=== PATIENT | male | born 1960 | race Caucasian/White ===

== ENCOUNTER → 2023-02-25 09:49 | Outpatient (REF) | payer OTHER, SELFPAY ==
--- NOTE | 2023-02-25 09:54 | CA_ITS ---
Transthoracic Echocardiogram Patient (Last, First, Middle): Parag Mcgee, Gender: Male Date of : 1960 Age: 62 Procedure Date: 02/25/2023 Procedure Type: Transthoracic Echocardiogram Location: OP Height: 167.64 cm Weight: 90.72 kg BSA: 2.00 m2 Heart Rate: bpm BP: 115 / 60 mmHg Wireline Operator: JULIAN Referring MD: Ashtyn Holguin MD Symptoms: ABN EKG W OLD CA ISCHEMIA Study Quality: Adequate Conclusions: - The left ventricular systolic function is normal. The calculated ejection fraction is 68% by biplane method. - No obvious valvular pathology seen on this study. Findings Left Ventricle Normal left ventricular cavity size. There is mildly increased left ventricular wall thickness. The left ventricular systolic function is normal. The calculated ejection fraction is 68% by biplane method. There is no evidence of regional wall motion abnormalities. LV peak GLS -22.2%. Right Ventricle Normal right ventricular cavity size and systolic function. Atria Both atria are normal in size. There is lipomatous hypertrophy of the interatrial septum. Aortic Valve There is a normal trileaflet aortic valve. There is no aortic valve stenosis. There is no aortic valve regurgitation. Mitral Valve The mitral valve appears normal. There is no mitral valve regurgitation. There is no mitral valve stenosis. Pulmonic Valve The pulmonic valve is likely normal. Tricuspid Valve Normal tricuspid valve structure. There is mild tricuspid valve regurgitation. There is no evidence of pulmonary hypertension. Great Vessels The asc aorta is normal in size. Venous The inferior vena cava is normal in size and collapses greater than 50% with inspiration. Pericardium/Pleural There is no evidence of pericardial effusion. Prior Study Comparison No prior study available for comparison. Recommendations, Care & Conclusions No obvious valvular pathology seen on this study. Measurements 2D Linear Measurements IVSd: 1.08 0.6-0.9/0.6-1.0 cm LVIDd: 4.73 3.9-5.3/4.2-5.9 cm LVIDd Index: 2.37 2.4-3.2/2.2-3.1 cm/m2 LVIDs: 3.02 2.0-3.6 cm LVPWd: 1.07 0.7-1.1 cm LA Diam: 3.30 2.7-3.8/3.0-4.0 cm LAIDs Index: 1.65 1.5-2.3 cm/m2 LV Mass: 228.63 67-162/88-224 g LV Mass Index: 114.32 43-95/49-115 g/m2 LVOT Diam: 2.10 3.0+(-)1.3 cm 2D Systolic Function EF 4C: 69.10 >55% EF 2C: 67.70 >55% EF BiP: 67.90 >55% Mitral Valve MV Pk E: 0.88 MV PK A: 0.93 MV Decel Time: 229.00 E/A: 1.00 E'Lateral: 7.77 E'Medial: 6.53 E/E' Med: 13.50 E/E' Lat: 11.40 PHT: 67.00 MVA PHT: 3.28 Decel [place]: 3.86 Aortic Valve AoV Pk Luis Enrique: 1.78 AoV Mn Luis Enrique: 1.22 AoV VTI: 0.34 AoV Pk Grad: 13.00 Aov Mn Grad: 7.00 EBONY Cont.VTI: 2.90 LVOT LVOT Pk Luis Enrique: 1.45 LVOT Mn Luis Enrique: 0.98 LVOT VTI: 0.28 LVOT Pk Grad: 8.00 LVOT Mn Grad: 5.00 LVOT Diam: 2.10 LVOT Area: 3.46 Diastolic Function MV Pk E: 0.88 MV Pk A: 0.93 E/A: 1.00 E'Medial: 6.53 E/E' Med: 13.50 E' Laterial: 7.77 E/E' Lat: 11.40 Right Ventricle TAPSE (mm): 22.00 TVS' Luis Enrique: 15.10 Tricuspid Valve TR Pk Luis Enrique: 2.40 TR Pk Grad: 23.00 RA Press: 3.00 RVSP: 26.00 Great Vessels Aorta Sinus of Valsalva: 4.15 2.0-3.[address] [place]: 3.09 1.7-3.4 cm Ao Asc: 3.60 2.1-3.4 cm Updated in Other Vendor System with Status of Final Cliff Mays MD electronically signed on 02/25/2023 3:04:38 PM with status of Final
== END ==
LOC: HO.CARD 09:49
PROVIDERS: PCP Internal Medicine; Visit Provider Internal Medicine
DX: R94.31 Abnormal electrocardiogram [ECG] [EKG] (principal); I10 Essential (primary) hypertension
CPT/HCPCS: 93306; 93356

== ENCOUNTER → 2023-02-25 09:54 | Outpatient (BNV) | payer OTHER, SELFPAY | PROVIDERS: PCP Internal Medicine; Visit Provider Internal Medicine | DX: I36.1 Nonrheumatic tricuspid (valve) insufficiency (principal) | CPT/HCPCS: 93306 ==

== ENCOUNTER 2023-03-25 11:48 | Outpatient (REF) | payer OTHER, SELFPAY ==
[2023-03-25 14:04] LABS: Anion Gap 14 (12-20); Blood Urea Nitrogen 20 mg/dL (9-16); Calcium 9.8 mg/dL (8.4-10.2); Carbon Dioxide 24 mmol/L (22-29); Chloride 104 mmol/L (96-108); Estimated Glomerular Filt Rate > 60; Glucose Random 119 mg/dL (60-115); Sodium 138 mmol/L (135-145)
== END 2023-03-25 11:49 | disposition home or self-care (01) ==
LOC: HO.HHCL 11:48
PROVIDERS: Visit Provider Internal Medicine
DX: I10 Essential (primary) hypertension (principal)
CPT/HCPCS: 36415; 80048

== ENCOUNTER 2025-05-03 09:20 | Outpatient (REF) | payer MEDICARE, SELFPAY ==
--- OUTSIDE RECORDS SUMMARY | 2025-05-03 10:21 | XMS_ITS | Clinical Summary ---
Author Organization [employer] Address [address] [facility] [address] [place] [address] Care Team Providers Care Inkjet Operator Name Role Phone Ashtyn Holguin MD Primary Care Provider + Gela Adame Unavailable Unavailable Allergies No known active allergies Medications lisinopril-hydroC HLOROthiazide 20-25 MG tabletIndications :Benign hypertension Take 1 tablet by mouth Once per day. 90 tablet 3 12/28/2024 12/29/19 26 Active Active Problems Problem Noted Date Diagnosed Date Screening for colorectal cancer 12/28/2024 Assessment & Plan (12/28/2024 10:38 AM EDT): We discussed about screening options including colonoscopy and Cologuard. He agreed to have Cologuard, will follow-up Class 1 obesity due to exces s calories with serious comorbidity and body mass index (BMI) of 31.0 to 31.9 in adult 02/17/2024 Assessment & Plan (09/20/2024 3:59 PM EST): Discussed re weight reduction options including exercise, life style modifications, diet. Recommended to decrease soda and sugary beverage consumption, increase protein intake with meals (at least 1 portion of protein with each meal) to assist with satiety, increase dietary fiber Recommended at least 150 min/week of moderate intensity exercise. Declined referral to dietitian Assessment & Plan (02/17/2024 10:42 AM EDT): Discussed re weight reduction options including exercise, life style modifications and diet. Recommended to decrease soda and sugary beverage consumption, increase protein intake with meals (at least 1 portion of protein with each meal) to assist with satiety, increase dietary fiber Recommended at least 150 min/week of moderate intensity exercise. Narrow angle glaucoma suspect of both eyes 07/29 Assessment & Plan (07/29/2023 11:17 AM EST): Seen by applicator sprayer 2 m ago, needs further evaluation Hyperglycemia 07/29/2023 Assessment & Plan (07/29/2023 11:17 AM EST): Pt has IFG IFG (impaired fasting glucose) 07/29/2023 Assessment & Plan (09/20/2024 3:58 PM EST): I have discussed with patient regarding increasing physicial activity and decrease calorie intake I'll check FBS with next set of labs.. FU with me next visit/6mo Assessment & Plan (02/17/2024 10:42 AM EDT): I have discussed with patient regarding increasing physicial activity and decrease calorie intake I'll check FBS with next set of labs. To check RBS at next visit. FU with me 6 months. Assessment & Plan (07/29/2023 11:18 AM EST): Pt has IFG Controlled. Counseled re more frequent low calorie/carb meals. Encouraged physical activity as tolerated. FU in 6 months. Exercise counseling 01/28/2023 Combined hyperlipidemia 12/21/2022 Overview (12/21/2022): Labs on 12/17/22-->Life style modifications Assessment & Plan (12/28/2024 10:35 AM EDT): Last LDL was 103, goal is below 100. Check lipid profile and follow-up with me in 4 months Continue lifestyle modifications Decreased vision in both eyes 12/17/2022 Assessment & Plan (12/17/2022 10:21 AM EDT): referred to applicator sprayer Abnormal EKG 12/17/2022 Assessment & Plan (01/28/2023 12:18 PM EDT): Signs of old ischemia on EKG echocardiogram pending Assessment & Plan (12/17/2022 10:21 AM EDT): Has signs of old ischemia, pt does not report history of ACS. Currently asymptomatic. Order echocardiogram to evaluate for wall motion abnormalities. Encounter for preventive health examination 12/07 Assessment & Plan (12/17/2022 10:16 AM EDT): Discussed with patient re increase fresh fruit and vegetable intake. Counseled re moderate exercise as tolerated, up to 20min/d Patient feels safe at home. Eye exam pt being referred to opthalmology CRC screen I gave him information about colonoscopy and cologuard. Pt will take the information home and get back to me at next visit. Lipids/FBS TBO. Vaccinations counseled about Shingrix #2, order hepatitis profile, otherwise iz up to date. Dental visit overdue, counseld to make an appointment with our dental department on the fourth floor Dietary counseling 12/17/2022 Assessment & Plan (01/28/2023 12:15 PM EDT): Pt has obesity. Discussed re weight reduction options including exercise, life style modifications, diet, referral to nursing specialist. Discussed re lower calorie intake, increase dietary fiber Assessment & Plan (12/17/2022 10:20 AM EDT): mild obesity, counseled regarding weight reduction. Cough 12/16/2022 COVID-19 12/16/2022 Assessment & Plan (08/04/2023 10:06 AM EST): He's almost asymptomatic, No need for antivirals at this time. I will give Cough syrup at night only, recommended increase water intake Isolation until 08/06/23 and she/he will be out of work until then. Can be out of isolation, wearing a mask On 08/07/23, until 08/11/23, if sxs are resolved without other meds for at least 24h. Counseled to let close contacts within the past week, know about dx so they can be tested if needed. Rest (sleep at least 8 hours a night). Wash hands frequently Hydrate with plenty of water. Use saline nose drops Take Acetaminophen or Ibuprofen as Prn fever or discomfort Gargle with salt water and use throat sprays/lozenges prn Use heated, humidified air or take hot showers. If you have a fever, stay home and away from others (self isolation) until fever-free for 72 hours (temperature should be less than 100 F without medication). Grief 03/03/2018 Vitamin D deficiency 01/06/2018 Assessment & Plan (12/28/2024 10:37 AM EDT): Completed vitamin D supplementation last year, now off vitamin D. Advised regarding outdoor exercise for at least 50 minutes/day Check vitamin D levels. Assessment & Plan (01/28/2023 12:19 PM EDT): on vitamin D supplementation weekly x 3 months. counseled regarding outdoor exercise for at least 15 minutes daily repeat vitamin D in december 2023 Benign hypertension 11/25/2017 Assessment & Plan (12/28/2024 10:37 AM EDT): Reportedly controlled at home, uncontrolled today probably regarding to high salt consumption this past week. We discussed about avoiding added salt in his diet Continue lisinopril/HCTZ and check labs today. He will follow-up BP with RN in 3 to 4 weeks and bring BP log, follow-up with me in 4 months Counseled re low salt diet/increase moderate physical activity. Check home BP BIW and prn CP/PEDROZA/RUIZ Non smoking patient. Assessment & Plan (02/17/2024 10:29 AM EDT): Controlled. Compliant w/meds Continue lisinopril/hctz same dose Counseled re low salt diet/increase moderate physical activity. Check home BP BIW and prn CP/PEDROZA/RUIZ Non smoking patient. Assessment & Plan (07/29/2023 11:17 AM EST): Controlled. Compliant w/meds Continue lisinopril/HCTZ 20/25 once /day Counseled re low salt diet/increase moderate physical activity. Check home BP BIW and prn CP/PEDROZA/RUIZ Non smoking patient. FU in 4 m Assessment & Plan (03/25/2023 11:45 AM EDT): Uncontrolled Switch to lisinopril 20mg/HCTZ 25mg Counseled re low salt diet/increase moderate physical activity Check home BP BIW and prn CP/PEDROZA/RUIZ Non smoking patient. FU 4 mos w/ labs Assessment & Plan (01/28/2023 12:20 PM EDT): Uncontrolled. Add HCTZ 12.5mg per day and continue lisinopril 20 FU BP with RN in 3 weeks and with me in 2 months. Counseled re low salt diet/increase moderate physical activity. Check home BP BIW and prn CP/PEDROZA/RUIZ Non smoking patient. Assessment & Plan (12/17/2022 10:22 AM EDT): Uncontrolled today. Continue lisinopril 20 mg and FU with me in 3 months with labs Counseled re low salt diet/increase moderate physical activity. Check home BP BIW and prn CP/PEDROZA/RUIZ Non smoking patient. Resolved Problems Problem Noted Date Diagnosed Date Resolved Date URI, acute 08/04/2023 04/26/2025 Encounters Date Type Department Care Team Description 04/26/2025 12:15 PM EDT Telemedicine [facility] [address] [place] [phone] Ashtyn Holguin MD Benign hypertension (Primary Dx) 04/26/2025 Travel 04/25/[address] [facility] [address] [place] [phone] Ashtyn Holguin MD Chart Prep 04/19/2025 9:20 AM EDT Office Visit [facility] [address] [place] [address] Camille Wagner LLD Stage 3 grade A generalized periodontitis per AAP/EFP 2017 classification (Primary Dx) 04/19/2025 8:00 AM EDT Office Visit [facility] [address] [place] [address] Darya Jeffrey DDS 04/18/2025 Patient Outreach [facility] [address] [place] [phone] Ashtyn Holguin MD Pre-visit Planning (SDOH screening completed on 08/15/2024) 04/12/2025 9:30 AM EDT Office Visit [facility] [address] [place] [address] Camille Wagner LLD Stage 3 grade B generalized periodontitis per AAP/EFP 2017 classification (Primary Dx) 03/15/[address] [facility] [address] [place] [address] Ashtyn Holguin MD Benign hypertension 02/01/2025 10:30 AM EDT Clinical Support [facility] [address] [place] [phone] Ilya Solano RN Benign hypertension [I10] 02/01/2025 Travel from Last 3 Months Immunizations Immunization Administration Dates Next Due INFLUENZA VACCINE QUADRIVALE NT RECOMBINANT PRESERVATIVE FREE RIV4 04/19/2023,06/17/2022 Influenza injectable quadriv alent IIV4 with preservative 06/02/2018 Influenza injectable quadrivalent preservative f ree 05/14/2021,04/03/2020 Influenza, IIV3, injectable 04/19/2023 Pfizer Covid-19 Vaccine 12+ 07/29/2023 Tdap 03/23/2019 Zoster, Recombinant 03/13/2023 Zoster, live 03/23/2019 Social History Tobacco Use Types Packs/Day Years Used Date Smoking Tobacco: Former Cigarettes Smokeless Tobacco: Never Tobacco Cessation:Counseling Given: Not Answered Alcohol Use Standard Drinks/Week Comments Not Currently 0 (1 standard drink = 0.6 oz pur e alcohol) Alcohol Answer Date Recorded How often do you have a drink containing alcohol ? 0 12/28/2024 How many drinks containing a lcohol do you have on a typical day when you are drinking? 0 12/28/2024 How often do you have six or more drinks on one occasion? 0 12/28/2024 Depression Answer Date Recorded Patient Health Questionnaire-9 Score 0 04/26/2025 Patient Health Questionnaire-9 Score 0 04/26/2025 Last PHQ-9: Questionnaire Data Not on file 0 04/26/2025 Housing Stability Answer Date Recorded What is your housing situation today? I have monica thomas 12/28/[address] you li ve. Do you have problems with any of the following? None of the above 12/28/2023 Food Insecurity Answer Date Recorded Within the past 12 months, y ou worried that your food would run out before you got money to buy more: Never True 08/15/2024 Within the past 12 months,th e food you bought just didn't last and you didn't have enough money to get more: Never True 02/2025 Transportation Answer Date Recorded In the past 12 months, has l ack of transportation kept you from medical appts, meetings, work or from getting things needed for daily living? No 08/15/2024 Utilities Answer Date Recorded In the past 12 months, has t he electric, gas, oil or water company threatened to shut off services in your home? No 12/28/2023 Depression Answer Date Recorded Patient Health Questionnaire-2 Score 0 04/26/2025 Internet Access Answer Date Recorded Internet Access Q1 Yes 08/15/2024 Internet Access Q2 Not on file 08/15/2024 Sex and Gender Information Value Date Recorded Sex Assigned at Male 06/08/2022 10:18 AM EDT Legal Sex Male 10:18 AM EDT Gender Identity Male 06/08/2022 10:18 AM EDT Sexual Orientation Straight 06/08/2022 10 :18 AM EDT Last Filed Vital Signs Vital Sign Reading Time Taken Comments Blood Pressure 154/86 04/19/2025 8:41 AM EDT Pulse 98 02/01/2025 10:56 AM EDT Temperature 36 C (96.8 F) 12/28/2024 10:04 AM EDT Respiratory Rate 16 02/01/2025 10:56 AM EDT Oxygen Saturation 93% 02/01/2025 10:56 AM EDT Inhaled Oxygen Concentration - - Weight 88.2 kg (194 lb 6 oz) 12/28/2024 10:04 AM EDT Height 167.6 cm (5' 6 ) 12/28/2024 10:04 AM EDT Body Mass Index 31.37 12/28/2024 10:04 AM EDT Plan of Treatment Upcoming Encounters Date Type Department Care Team (Late st Contact Info) Description 05/24/2025 8:30 AM EDT Office Visit [facility] [address] [place] [address] Camille Wagner LLD [address] [place] [address] Health Maintenance Due Date Last Done Comments CT Colonography 1959 Colonoscopy 1959 FIT 1959 Sigmoidoscopy 1960 Pneumococcal Vaccine: 50+ Years (1 of 1 - PCV) 12/05/2009 Zoster Vaccines (3 of 3) 05/08/2023 03/13/2023, 03/09 Dental Oral Exam 03/22/2025 09/21/2024, , 08/08/2020, Additional history exists Dental Prophylaxis 03/22/2025 09/21/2024, 0 03/23/2024, 08/08/2020, Additional history exists Dental X-Ray: Bitewings 03/24/2025 03/23/20 24, 08/08/2020, 12/30/2017, Additional history exists COVID-19 Vaccine ( season) 2025 07/29/2023, 06/17/2022, 06/04/2021, Additional history exists Influenza Vaccine (#1) 2025 , 04/19/2023, 04/19/2023, Additional history exists SDOH Screening 08/15/2025 08/15/2024 Alcohol/Substance Use Screening 12/28/2025 12/28/2024 Tobacco Screening 12/28/2025 12/28/2024 FOBT 03/29/2026 03/29/2025 Depression Screening 04/26/2026 04/26/2025, 04/26/20 Dental X-Ray: Full Mouth 03/24/2027 024, 08/08/2020, 12/30/2017, Additional history exists Lipid Panel 12/18/2027 12/17/2022 Colorectal Cancer Screening 03/29/2028 FIT DNA/Cologuard 03/29/2028 03/29/2025 DTaP/Tdap/Td Vaccines (2 - Td or Tdap) 03/23/2029 03/23/2019 RSV Patients and Patients Aged 60 years or older (1 - 1-dose 75+ series) 12/05/2034 Hepatitis C Screening Completed 12/17/2022 HIB Vaccines Aged Out No longer eligi ble based on patient's age to complete this topic HPV Vaccines Aged Out No longer eligi ble based on patient's age to complete this topic Hepatitis A Vaccines Aged Out No long er eligible based on patient's age to complete this topic Hepatitis B Vaccines Aged Out No long er eligible based on patient's age to complete this topic IPV Vaccines Aged Out No longer eligi ble based on patient's age to complete this topic Meningococcal B Vaccine Aged Out No l onger eligible based on patient's age to complete this topic Meningococcal Vaccine Aged Out No lydia ian eligible based on patient's age to complete this topic RSV under 20 months Aged Out No longe r eligible based on patient's age to complete this topic Rotavirus Vaccines Aged Out No longer eligible based on patient's age to complete this topic Procedures Procedure Name Priority Date/Time Associated Diagnosis Comments UL PERIODONTAL SCALING AND ROOT PLANING - 4 OR MORE TEETH PER QUADRANT Routine 04/19/2025 9:20 AM EDT LL PERIODONTAL SCALING AND ROOT PLANING - 4 OR MORE TEETH PER QUADRANT Routine 04/19/2025 9:20 AM EDT 14 L RESIN-BASED COMPOSITE - 1 SURF, POSTERIOR Routine 04/19/2025 8:00 AM EDT LR PERIODONTAL SCALING AND ROOT PLANING - 4 OR MORE TEETH PER QUADRANT Routine 04/12/2025 9:30 AM EDT UR PERIODONTAL SCALING AND ROOT PLANING - 4 OR MORE TEETH PER QUADRANT Routine 04/12/2025 9:30 AM EDT LAB COLOGUARD COLON CANCER SCREEN Routine 03/29/2025 7:45 AM EDT Screening for colon cancer Full PROPHYLAXIS - ADULT Routine 09/21/2024 2:00 PM EST PERIODIC ORAL EVALUATION - ESTABLISHED PATIENT Routine 09/21/2024 2:00 PM EST INTRAORAL - COMPLETE SERIES OF RADIOGRAPHIC IMAGES Routine 03/23/2024 12:00 PM EDT HEPATITIS PANEL, GENERAL Routine 12/17/2022 10:25 AM EDT Encounter for preventive health examination LIPID PANEL WITH REFLEX TO DIRECT LDL Routine 12/17/2022 10:25 AM EDT Benign hypertension from Last 3 Months or Most Recently Relevant to Health Maintenance Results * Cologuard?? colon cancer screening (03/29/2025 7:45 AM EDT) Cologuard Result Negative Negative 04/03/20 4:38 AM EDT [facility] (CLIA #:[id number]) Comment: The Cologuard (TM) test was performed on this specimen. NEGATIVE TEST RESULT. A negative Cologuard result indicates a low likelihood that a colorectal cancer (CRC) or advanced adenoma (adenomatous polyps with more advanced pre-malignant features) is present. The chance that a person with a negative Cologuard test has a colorectal cancer is less than 1 in 1500 (negative predictive value >99.9%) or has an advanced adenoma is less than 5.3% (negative predictive value 94.7%). These data are based on a prospective cross-sectional study of 10,000 individuals at average risk for colorectal cancer who were screened with both Cologuard and colonoscopy. (Tao Vail et al, N Engl J Med 2014;370(14):1286- 1297) The normal value (reference range) for this assay is negative. COLOGUARD RE-SCREENING RECOMMENDATION: Periodic colorectal cancer screening is an important part of preventive healthcare for asymptomatic individuals at average risk for colorectal cancer. Following a negative Cologuard result, the [place] Cancer Society and U.S. Multi-Society Task Force screening guidelines recommend a Cologuard re-screening interval of 3 years. References: [place] Cancer Society Guideline for Colorectal Cancer Screening: https://www.cancer.org/cancer/hkhea-dpnftb-vgjsbf/wlexqhskk-mbyxbocvi-nmxpgen/ac s-rec ommendations.html.; Darius BENJAMIN, Cami HINKLE, Anthony VILLALBA, Colorectal Cancer Screening: Recommendations for Physicians and Patients from the U.S. Multi-Society Task Force on Colorectal Cancer Screening , Am J Gastroenterology 2017; 112:0305-2537. TEST DESCRIPTION: Composite algorithmic analysis of stool DNA-biomarkers with hemoglobin immunoassay. Quantitative values of individual biomarkers are not reportable and are not associated with individual biomarker result reference ranges. Cologuard is intended for colorectal cancer screening of adults of either sex, 45 years or older, who are at average-risk for colorectal cancer (CRC). Cologuard has been approved for use by the U.S. FDA. The performance of Cologuard was established in a cross sectional study of average-risk adults aged 50-84. Cologuard performance in patients ages 45 to 49 years was estimated by sub-group analysis of near-age groups. Colonoscopies performed for a positive result may find as the most clinically significant lesion: colorectal cancer [4.0%], advanced adenoma (including sessile serrated polyps greater than or equal to 1cm diameter) [20%] or non- advanced adenoma [31%]; or no colorectal neoplasia [45%]. These estimates are derived from a prospective cross-sectional screening study of 10,000 individuals at average risk for colorectal cancer who were screened with both Cologuard and colonoscopy. (Tao Rg al, N Engl J Med 2014;370(14):6894-3462.) Cologuard may produce a false negative or false positive result (no colorectal cancer or precancerous polyp present at colonoscopy follow up). A negative Cologuard test result does not guarantee the absence of CRC or advanced adenoma (pre-cancer). The current Cologuard screening interval is every 3 years. ([place] Cancer Society and U.S. Multi-Society Task Force). Cologuard performance data in a 10,000 patient pivotal study using colonoscopy as the reference method can be accessed at the following location: www.BAUNAT/results. Additional description of the Cologuard test process, warnings and precautions can be found at www.[employer].com. Stool specimen (specimen) Rectal contents / Unknown 03/29/2025 7:45 AM EDT 03/30/2025 1:13 PM EDT us Ashtyn Holguin MD LAB MOLECULAR DIAGNOSTIC S ORDERABLES Final Result [facility] (CLIA #:[id number]) [address] [place] [address], * (ABNORMAL) Lipid Panel with Reflex to Direct LDL (12/17/2022 10:25 AM EDT) Cholesterol, Total 180 <200 mg/dL [facility] HDL Cholesterol 62 > OR = 40 mg/dL [facility] [employer] [facility] Triglycerides 66 <150 mg/dL [facility] [employer] [facility] LDL Cholesterol 103(H) mg/dL (calc) [facility] [facility] Comment: Reference range: <100 Desirable range <100 mg/dL for primary prevention; <70 mg/dL for patients with CHD or diabetic patients with > or = 2 CHD risk factors. LDL-C is now calculated using the Joi calculation, which is a validated novel method providing better accuracy than the Friedewald equation in the estimation of LDL-C. Richie SS et al. NEIL. 2013;310(19): 8354-9164 (http://education.Certalia/faq/PJR047) Chol/HDLC Ratio 2.9 <5.0 (calc) [facility] [employer] Non-HDL Cholesterol 118 <130 mg/dL (calc) [facility] Comment: For patients with diabetes plus 1 major ASCVD risk factor, treating to a non-HDL-C goal of <100 mg/dL (LDL-C of <70 mg/dL) is considered a therapeutic option. 12/17/2022 10:2 5 AM EDT 12/17/2022 10:26 AM EDT Narrative [facility] - 12/22/2022 3:11 PM EDT FASTING:YES FASTING: YES us Ashtyn Holguin MD LAB BLOOD ORDERABLES Fin al Result [facility] [address], [place] [address] [facility] [address] [place] [address] * (ABNORMAL) Hepatitis Panel, General (12/17/2022 10:25 AM EDT) Hepatitis A Antibody Total REACTIVE( A) NON-REACT TONI [facility] Comment: For additional information, please refer to http://[facility].NewsBasis/faq/ALC094 (This link is being provided for informational/ educational purposes only.) Hepatitis B Surface Antibody QL NON-REACT TONI NON-REACT TONI [employer] [facility] Hepatitis B Surface Ag NON-REACT TONI NON-REACT TONI [employer] [employer] [facility] Hepatitis B Core Antibody Total NON-REACT TONI NON-REACT TONI [facility] Hepatitis C Antibody NON-REACT TONI NON-REACT TONI [facility] [employer] [facility] Index 0.22 <1.00 [facility] Comment: HCV antibody was non-reactive. There is no laboratory evidence of HCV infection. In most cases, no further action is required. However, if recent HCV exposure is suspected, a test for HCV RNA (test code 14318) is suggested. For additional information please refer to http://[facility].NewsBasis/faq/BNX86y2 (This link is being provided for informational/ educational purposes only.) 12/17/2022 10:2 5 AM EDT 12/17/2022 10:26 AM EDT Narrative [facility] - 12/22/2022 3:11 PM EDT FASTING:YES FASTING: YES Ashtyn Holguin MD LAB BLOOD ORDERABLES Fin al Result [facility] [address], [place] [address] [facility] [address] [place] [address] from Last 3 Months or Most Recently Relevant to Health Maintenance Insurance [facility] MEDICARE ADVANTAGE DENTAL - [facility] PPO Care Teams Inkjet Operator Relationship Specialty Start Date End Date Ashtyn Holguin MD [address] [place] [phone] PCP - General Family Medicine 04/07/18 Gela Adame Health Navigator Financial Counseling and Assistance Services 09/13/24
--- OUTSIDE RECORDS SUMMARY | 2025-05-03 10:21 | XMS_ITS | Encounter Summary ---
Author Organization [employer] Address [address] [facility] 7[address] [place] [address] Care Team Providers Care Granite Worker Name Role Phone Ashtyn Holguin MD Primary Care Provider + Gela Adame Unavailable Unavailable Encounter Details Date Type Department Care Team (Latest Contact Info) Description 08/08/2020 Abstract [facility], Provider, DDS Social History Tobacco Use Types Packs/Day Years Used Date Smoking Tobacco: Never Assessed Sex and Gender Information Value Date Recorded Sex Assigned at Male 06/08/2022 10:18 AM EDT Legal Sex Male 10:18 AM EDT Gender Identity Male 06/08/2022 10:18 AM EDT Sexual Orientation Straight 06/08/2022 10 :18 AM EDT documented as of this encounter Plan of Treatment Upcoming Encounters Date Type Department Care Team (Late st Contact Info) Description 05/24/2025 8:30 AM EDT Office Visit Maye [facility] [address] [place] [address] Camille Wagner LLD [address] [place] [address] documented as of this encounter Visit Diagnoses Not on filedocumented in this encounter Care Teams Granite Worker Relationship Specialty Start Date End Date Ashtyn Holguin MD [address] [place] [address] PCP - General Family Medicine 04/07/18 Gela Adame Health Navigator Financial Counseling and Assistance Services 09/13/24 documented as of this encounter
--- OUTSIDE RECORDS SUMMARY | 2025-05-03 10:21 | XMS_ITS | Clinical Summary ---
Author Organization [facility] Address [address] [place] [address] Phone Care Team Providers Care Top Lift Nailer Name Role Phone Ashtyn Holguin MD Primary Care Provider + Allergies No known active allergies Medications inhaler spacing device (AEROCHAMBER,BR EATHERITE) Spcr Inhale 1 each into the lungs every 4 (four) hours as needed. 1 each 9 Active albuterol 90 mcg/actuation inhaler Inhale 2 puffs into the lungs every 6 (six) hours as needed for wheezing or shortness of breath/dyspnea . 1 Inhaler 9 Active benzonatate (TESSALON) 100 MG capsule Take 1 capsule (100 mg total) by mouth 3 (three) times a day as needed for cough. 20 capsule 9 Active Social History Tobacco Use Types Packs/Day Years Used Date Smoking Tobacco: Former Smokeless Tobacco: Never Alcohol Use Standard Drinks/Week Comments Not Currently 0 (1 standard drink = 0.6 oz pur e alcohol) not for 22 years Education Answer Date Recorded Are you interested in more education? Not on clarke e 12/04/2022 Are you concerned about learning? Not on file 12/04/2022 No 12/04/2022 No 12/04/2022 Digital Access Answer Date Recorded No 01/04/2023 No 01/04/2023 No 01/04/2023 Reliable internet access at home? Not on file 01/04/2023 Device with a working camera? Not on file Sex and Gender Information Value Date Recorded Sex Assigned at Male 11/05/2018 11:56 AM EDT Legal Sex Male 9:49 PM EDT Gender Identity Male 11/05/2018 11:56 AM EDT Sexual Orientation Choose not to disclose 2018 11:56 AM EDT Last Filed Vital Signs Vital Sign Reading Time Taken Comments Blood Pressure 147/84 11/05/2018 3:44 PM EDT Pulse 96 11/05/2018 3:44 PM EDT Temperature 36.9 C (98.4 F) 11/05/2018 3:44 PM EDT Respiratory Rate 18 11/05/2018 3:44 PM EDT Oxygen Saturation 96% 11/05/2018 3:44 PM EDT Inhaled Oxygen Concentration - - Weight 90.7 kg (200 lb) 11/05/2018 11:52 AM EDT Height 170.2 cm (5' 7 ) 11/05/2018 11:52 AM EDT Body Mass Index 31.32 11/05/2018 11:52 AM EDT Plan of Treatment Not on file Medical Devices Not on file Insurance [employer] NON NSPG PCP [employer] CONNECTORCARE [employer] NON NSPG PCP [employer] CONNE[employer]CARE [employer] NON NSPG PCP SILVER [employer]ARITY CONNECTORCARE [employer] NON NSPG PCP SILVER [employer]ARITY CONNECTORCARE [employer] NON NSPG PCP SILVER [employer]ARITY CONNECTORCARE [employer] NON NSPG PCP SILVER [employer]ARITY CONNECTORCARE [employer] NON NSPG PCP SILVER [employer]ARITY CONNECTORCARE [employer] NON NSPG PCP SILVER CLARITY CONNECTORCARE [facility] NON NSPG PCP ABEL [facility] CONNECTORCARE Care Teams Top Lift Nailer Relationship Specialty Start Date End Date Ashtyn Holguin MD [address] [place] [address] [address] [place] [address] PCP - General Internal Medicine 11/05/18 Additional Source Comments The information contained in this document represents components of the legal health record. It is not the complete legal health record.[facility]
--- OUTSIDE RECORDS SUMMARY | 2025-05-03 10:21 | XMS_ITS | Encounter Summary ---
Author Organization [employer] Address [address] [facility] [address] [place] [address] Care Team Providers Care Recycling Operator Name Role Phone Ashtyn Holguin MD Primary Care Provider + Gela Adame Unavailable Unavailable Reason for Visit * Reason Comments Med Refill Encounter Details Date Type Department Care Team (Late Contact Info) Description 01/02/2023 Refill [facility] MEDICINE [address], [place] [phone] Ashtyn Holguin MD [address] [place] [address] Social History Tobacco Use Types Packs/Day Years Used Date Smoking Tobacco: Former Cigarettes Smokeless Tobacco: Never Alcohol Use Standard Drinks/Week Comments Not Currently 0 (1 standard drink = 0.6 oz pur e alcohol) PHQ-2 Answer Date Recorded Patient Health Questionnaire-2 Score 0 12/17/2022 Depression Answer Date Recorded Patient Health Questionnaire-2 Score 0 12/17/2022 Sex and Gender Information Value Date Recorded Sex Assigned at Male 06/08/2022 10:18 AM EDT Legal Sex Male 10:18 AM EDT Gender Identity Male 06/08/2022 10:18 AM EDT Sexual Orientation Straight 06/08/2022 10 :18 AM EDT COVID-19 Exposure Response Date Recorded In the last 10 days, have yo u been in contact with someone who was confirmed or suspected to have Coronavirus/COVID-19? No / Unsure 12/17/2022 9:32 AM EDT documented as of this encounter Plan of Treatment Upcoming Encounters Date Type Department Care Team (Late Contact Info) Description 05/24/2025 8:30 AM EDT Office Visit Maye [facility] [address] [place] [address] Camille Wagner LLD [address] [place] [address] documented as of this encounter Visit Diagnoses Not on filedocumented in this encounter Care Teams Recycling Operator Relationship Specialty Start Date End Date Ashtyn Holguin MD [address] [place] [id number] PCP - General Family Medicine 04/07/18 Gela Adame Health Navigator Financial Counseling and Assistance Services 09/13/24 documented as of this encounter
--- OUTSIDE RECORDS SUMMARY | 2025-05-03 10:21 | XMS_ITS | Encounter Summary ---
Author Organization [employer] Address [address] [facility] [address] [place] [address] Care Team Providers Care Plaster Maker Name Role Phone Ashtyn Holguin MD Primary Care Provider + Gela Adame Unavailable Unavailable Reason for Visit * Reason Comments Med Refill Encounter Details Date Type Department Care Team ([facility] st Contact Info) Description 03/15/[address] [facility] MEDICINE [address] [place], [place] [phone] Ashtyn Holguin MD [address] [place], [place] [phone] Benign hypertension Social History Tobacco Use Types Packs/Day Years [...] Date Recorded Patient Health Questionnaire-9 Score 0 02/17/2024 Patient Health Questionnaire-9 Score 0 02/17/2024 Last PHQ-9: Questionnaire Data Not on file 0 02/17/2024 Housing Stability Answer Date Recorded What is [...] Date Recorded Patient Health Questionnaire-2 Score 0 12/28/2024 Internet Access Answer Date Recorded Internet Access [...] 05/24/2025 8:30 AM EDT Office Visit Maye [facility] [address] [place] [address] Camille Wagner LLD [address] [place] [address] documented as of this encounter Visit Diagnoses Diagnosis Benign hypertension Essential hypertension, benign documented in this encounter Additional Health Concerns Assessment Noted Time PHQ-9 Depression Total Score: 0 02/17/20 24 10:07 AM EDT documented as of this encounter Care Teams Plaster Maker Relationship Specialty Start Date End Date Ashtyn Holguin MD [address] [place] [address] PCP - General Family Medicine 04/07/18 Gela Adame Health Navigator Financial Counseling and Assistance Services 09/13/24 documented as of this encounter
[2025-05-03 12:36] LABS: Anion Gap 14 (12-20); Blood Urea Nitrogen 23 mg/dL (9-16); Calcium 9.2 mg/dL (8.4-10.2); Carbon Dioxide 25 mmol/L (22-29); Chloride 103 mmol/L (96-108); Cholesterol 175 mg/dL (<200); Estimated Glomerular Filt Rate > 60; HDL Cholesterol 44 mg/dL (>40); Potassium 4.1 mmol/L (3.3-5.1); Sodium 138 mmol/L (135-145); Triglycerides 88 mg/dL (<150)
[2025-05-03 13:30] LABS: Reflex LDLD? No
== END 2025-05-03 09:21 | disposition home or self-care (01) ==
LOC: HO.HHCL 09:20
PROVIDERS: PCP Internal Medicine; Visit Provider Internal Medicine
DX: I10 Essential (primary) hypertension (principal); R73.01 Impaired fasting glucose; E78.2 Mixed hyperlipidemia; E55.9 Vitamin D deficiency, unspecified
CPT/HCPCS: 36415; 80048; 80061; 82306; 84443